=== PATIENT | male | born 1985 | race Caucasian/White ===

== ENCOUNTER 2019-06-08 10:17 | Outpatient (CLI) | payer OTHER ==
--- NOTE | 2019-06-08 13:06 | RAD ---
LUMBAR SPINE 4 VIEWS INCLUDING STANDING AND FLEXION AND EXTENSION VIEWS: Date: 06/08/2019 HISTORY: Lumbar pseudoarthrosis. FINDINGS: There is a transitional vertebra at the lumbosacral level with what appears to be a partially lumbari zed S1 and a left-sided pseudoarthrosis. No significant malalignment. Disc spaces are adequately pres erved. No abnormal translation between flexion and extension. IMPRESSION: Partial lumbarization of S1 on the right side with left-sided pseudoarthrosis. No significant malalig nment. POS: [facility]
== END 2019-06-08 10:18 | disposition home or self-care (01) ==
LOC: RAD 10:17
PROVIDERS: ATTEND Nurse Practitioner Family
DX: S32.009K Unspecified fracture of unspecified lumbar vertebra, subsequent encounter for fracture with nonunion (principal); Q76.49 Other congenital malformations of spine, not associated with scoliosis
CPT/HCPCS: 72120